=== PATIENT | female | born 1960 | race Two or more races ===

== ENCOUNTER 2019-07-13 12:10 | Emergency (ER) | payer OTHER ==
[~2019-07-13] VITALS: Ht 160 cm; Wt 68.0 kg
[2019-07-13] MEDS ORDERED: LOSARTAN POTASS50 MG PO (12:59)
[2019-07-13] MEDS ORDERED: ZOCOR20 MG PO (12:59)
[2019-07-13] MEDS ORDERED: ZITHROMAX500 MG PO (14:04)
[2019-07-13] MEDS ORDERED: MUCINEX D ER 11 EACH PO (14:04)
== END 2019-07-13 14:40 | disposition home or self-care (01) ==
LOC: ER 12:10
DX: J06.9 Acute upper respiratory infection, unspecified (principal)